=== PATIENT | male | born 1990 | race Caucasian/White ===

== ENCOUNTER → 2024-03-26 06:23 | Day surgery (SDC) | payer BC, SELFPAY | LOC: GI 06:23 | PROVIDERS: ATTENDING PHYSICIAN Internal Medicine Gastroenterology | DX: K52.89 Other specified noninfective gastroenteritis and colitis (principal); K51.00 Ulcerative (chronic) pancolitis without complications; K64.8 Other hemorrhoids | CPT/HCPCS: 45380; 88305 ==

== ENCOUNTER 2024-08-03 09:52 | Emergency (ER) | payer SELFPAY ==
[2024-08-03 09:55] VITALS: BP 141/96
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
[2024-08-03 11:00] LABS: Alcohol None Detected
[2024-08-03 11:21] LABS: Amphetamines Negative (Negative); Barbiturates Negative (Negative); Benzodiazepines Negative (Negative); Buprenorphine Negative (Negative); Cocaine Negative (Negative); Marijuana Negative (Negative); Methadone Negative (Negative); Methamphetamines Negative (Negative); Opiates Negative (Negative); Phencyclidine Negative (Negative); Tricyclic Antidepressants Negative (Negative)
== END 2024-08-03 11:59 | disposition home or self-care (01) ==
LOC: EMR 09:52
PROVIDERS: Physician Assistant; EMERGENCY PHYSICIAN Emergency Medicine; FAMILY PHYSICIAN Emergency Medicine
DX: Z02.83 Encounter for blood-alcohol and blood-drug test (principal); V53.5XXA Driver of pick-up truck or van injured in collision with car, pick-up truck or van in traffic accident, initial encounter; Y99.0 Civilian activity done for income or pay
CPT/HCPCS: 99283; 80306; 82077